=== PATIENT | female | born 1995 | race Caucasian/White ===

== ENCOUNTER 2018-10-30 19:55 | Emergency (ER) | payer OTHER ==
[2016-01-15 14:32] VITALS: Wt 54.4 kg
[~2018-10-30 19:55] MED LIST: ACET-1718 PO; AMPH10CA17 PO; FAMO20TA28 PO; FLU20 PO; IBUP800T37 PO; MULT1CAP59 PO; PRED20TA6 PO; PREN-127 PO; PROM-110 PO
[2018-10-30 20:03] VITALS: BP 160/67
[2018-10-30] MEDS ORDERED: NORG1TAB74 (20:03)
[2018-10-30] MEDS ORDERED: cefTRIAXone 250 MG VIAL IM ONE (21:55)
[2018-10-30] MEDS ORDERED: AZITHROMYCIN 250 MG TAB PO ONE (21:55)
[2018-10-30] MEDS ORDERED: METRONIDAZOLE 500 MG TABLET PO ONE (21:55)
[2018-10-30] MEDS ORDERED: LEVONORGESTREL 1.5 MG TAB PO ONE (21:55)
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
== END 2018-10-30 22:30 | disposition home or self-care (01) ==
LOC: ER 22:26
DX: T76.21XA Adult sexual abuse, suspected, initial encounter (principal)
CPT/HCPCS: 81025; 99284; A9270; J0696; Q0144